=== PATIENT | male | born 1985 | race African-American/Black ===

== ENCOUNTER 2019-10-15 13:54 | Observation (INO) ==
[2019-10-15] MEDS ORDERED: ASPIRIN 325 MG TABLET PO STA (14:16)
[2019-10-15 15:06] LABS: Basophils # 0.1 10*3/uL (0.0-0.2); Basophils % 0.9 % (0.0-0.8); Eosinophils # 0.1 10*3/uL (0.0-0.87); Eosinophils % 1.2 % (0.00-10.9); Hematocrit 50.1 VOL% (42.0-52.0); Hemoglobin 16.5 GM/DL (14.0-18.0); Immature Granulocytes % 0.3 %; Immature Granulocytes Absolute 0.02 #; Lymphocytes # 2.3 10*3/uL (1.4-4.0); Lymphocytes % 30.1 % (21.2-54.2); Mean Corpuscular HGB Conc 32.9 GM/DL (32-36); Mean Corpuscular Volume 78.3 FL (87-102); Mean Platelet Volume 10.5 FL (9.6-12.0); Monocytes % 11.4 % (1.7-12.7); Neutrophils % 56.1 % (38.7-73.9); Platelet Count 343 T/CUMM (130-400); Red Cell Distribution Width 16.5 % (9.3-17.3); White Blood Count 7.5 T/CUMM (4-12)
[2019-10-15 15:19] LABS: PT Patient Result 10.8 SECS (9.6-12.2); Partial Thromboplastin Time 31.8 SECS (20.8-36.0)
[2019-10-15 15:30] LABS: Albumin 4.3 G/DL (3.4-5.0); Bilirubin,Total 0.5 MG/DL (0.2-1.0); Osmolality,Calculated 271.7 MOS/KG (273-304); Total Protein 7.7 G/DL (6.4-8.3)
[2019-10-15] MEDS ORDERED: ONDANSETRON 4 MG/2 ML VIAL IV PRN (16:09)
[2019-10-15] MEDS ORDERED: ACETAMINOPHEN 325 MG TABLET PO PRN (16:09)
[2019-10-15 17:50] LABS: Barbiturates Screen,Urine Negative (Negative); Benzodiazepines Screen,Urine Negative (Negative); Cannabinoid Screen,Urine Negative (Negative); Opiate Screen,Urine Negative (Negative); Phencyclidine Screen,Urine Negative (Negative)
[2019-10-15] MEDS ORDERED: INFLUENZA VIRUS VACCINE 0.5 ML SYRINGE IM ONE (19:37)
[2019-10-15] MEDS: LISINOPRIL 10 MG TABLET PO SCH (20:15)
[2019-10-15] MEDS ORDERED: ENOXAPARIN 40 MG/0.4 ML SYRINGE SUBCUT SCH (21:00)
[2019-10-16 05:08] LABS: Basophils # 0.1 10*3/uL (0.0-0.2); Basophils % 1.1 % (0.0-0.8); Eosinophils # 0.1 10*3/uL (0.0-0.87); Eosinophils % 1.8 % (0.00-10.9); Hematocrit 50.4 VOL% (42.0-52.0); Hemoglobin 16.8 GM/DL (14.0-18.0); Immature Granulocytes % 0.2 %; Immature Granulocytes Absolute 0.01 #; Lymphocytes # 2.6 10*3/uL (1.4-4.0); Lymphocytes % 47.5 % (21.2-54.2); Mean Corpuscular HGB Conc 33.3 GM/DL (32-36); Mean Corpuscular Volume 78.8 FL (87-102); Mean Platelet Volume 10.8 FL (9.6-12.0); Monocytes % 12.7 % (1.7-12.7); Neutrophils % 36.7 % (38.7-73.9); Platelet Count 333 T/CUMM (130-400); Red Cell Distribution Width 16.4 % (9.3-17.3); White Blood Count 5.4 T/CUMM (4-12)
[2019-10-16 05:43] LABS: Osmolality,Calculated 273.5 MOS/KG (273-304); Risk Ratio 3.26; Thyroid Stimulating Hormone 1.67 uIU/ml (0.358-3.74)
[2019-10-16 05:57] LABS: Eosinophils 2 % (0-10); Lymphocytes 53 % (20-55); Segmented Neutrophils 33 % (50-85); Total Cells Counted 100
[2019-10-16 05:58] LABS: Anisocytosis Slight; Microcytosis 1+; Platelet Estimate Normal; Target Cells Few
[2019-10-16 07:32] VITALS: BP 134/73
[2019-10-16] MEDS: LISINOPRIL 10 MG TABLET PO SCH (08:33)
[2019-10-16] MEDS ORDERED: ASPIRIN CHEW 81 MG TABLET PO SCH (09:00)
[2019-10-16] MEDS ORDERED: MULTIVITAMIN (CENTRUM) TABLET PO SCH (09:00)
[2019-10-16] MEDS ORDERED: THIAMINE 100 MG TABLET PO SCH (09:00)
[2019-10-16] MEDS ORDERED: PANTOPRAZOLE 40 MG TABLET PO SCH (09:00)
[2019-10-16] MEDS ORDERED: FOLIC ACID 1 MG TABLET PO SCH (09:00)
== END 2019-10-16 10:27 | disposition home or self-care (01) ==
LOC: N.EDINP 13:54 → N.ED 13:54 → N.EDINP 18:30 → N.2W 18:50
PROVIDERS: ADMIT Internal Medicine Cardiovascular Disease; ATTEND Internal Medicine Cardiovascular Disease